=== PATIENT | female | born 1995 | race Caucasian/White ===

== ENCOUNTER 2021-06-08 10:03 | Inpatient (IN) | payer OTHER ==
[2021-06-08] MEDS ORDERED: Ondansetron PF 4 MG/2 ML Vial IVP PRN ×3 (10:25→18:37)
[2021-06-08] MEDS ORDERED: Promethazine HCl 25 MG/ML VIAL IM PRN ×3 (10:25→18:37)
[2021-06-08] MEDS ORDERED: Bicitra 30 ML UDCUP PO PRN (10:25)
[2021-06-08] MEDS ORDERED: Famotidine/PF 20 mg/2ml Vial SLOW IVP PRN (10:25)
[2021-06-08] MEDS ORDERED: hydrALAZINE 20 MG/ML VIAL SLOW IVP PRN ×2 (10:25→18:37)
[2021-06-08] MEDS ORDERED: ceFAZolin 2 GM/Dextrose 50 ML 2 GM in Premix Bag 1 BAG IVPB SCH (10:30)
[2021-06-08 10:50] VITALS: BMI 31.3
[2021-06-08 11:23] LABS: Hemoglobin 10.6 g/dL (12.0-15.5); Mean Corpuscular Hemoglobin 27.2 pg (27.0-33.0); Mean Platelet Volume 11.2 fl (7.4-10.4); Platelet Count 273 10x3/uL (150-450); RBC Distribution Width 13.9 % (11.5-14.5); White Blood Cell (WBC) Count 9.2 10x3/uL (3.5-10.5)
[2021-06-08 11:51] LABS: Hep B Surf Ag Non-Reactive S/CO (NonReactive)
[2021-06-08 11:52] LABS: Syphilis Antibody Nonreactive (Nonreactive); Syphilis Antibody Index 0.09 S/CO (<1.00 Non-Reactive)
[2021-06-08] MEDS ORDERED: PROPOFOL 20 ML ONE ×3 (11:58→17:07)
[2021-06-08] MEDS ORDERED: Fentanyl 250 MCG/5 ML VIAL ONE (11:58)
[2021-06-08] MEDS ORDERED: Oxytocin 10 UNITS/ML VIAL ONE (11:59)
[2021-06-08] MEDS ORDERED: Succinylcholine 200 MG/10 ml SYRINGE FS ONE ×2 (11:59→16:16)
[2021-06-08] MEDS: Lactated Ringer's 1,000 ML IV SCH ×3 (11:59→18:42)
[2021-06-08] MEDS ORDERED: Dexamethasone 4 mg/ml Vial ONE (11:59)
[2021-06-08] MEDS ORDERED: Ondansetron PF 4 MG/2 ML Vial ONE (11:59)
[2021-06-08 12:48] LABS: SARS-CoV-2 NAA Rapid Test Not Detected (NotDetected)
[2021-06-08] MEDS ORDERED: Meperidine HCl/PF 25 MG/ML VIAL SLOW IVP PRN (13:00)
[2021-06-08] MEDS ORDERED: fentaNYL Citrate/PF 1,000 MCG in Sodium Chloride 0.9% 30 ML IV PRN (13:00)
[2021-06-08] MEDS ORDERED: diphenhydrAMINE 50 MG/ML VIAL IM PRN (13:00)
[2021-06-08] MEDS ORDERED: fentaNYL Citrate/PF 2,000 MCG in Sodium Chloride 0.9% 60 ML IV PRN (13:00)
[2021-06-08] MEDS ORDERED: Zolpidem Tartrate 5 MG TAB PO PRN (13:00)
[2021-06-08] MEDS ORDERED: Naloxone HCl 0.4 mg/ml Vial IV PRN (13:00)
[2021-06-08] MEDS ORDERED: Ondansetron HCl/PF 4 MG/2 ML Vial IVP PRN (13:00)
[2021-06-08] MEDS ORDERED: Fentanyl 100 MCG/2 ML VIAL SLOW IVP PRN (13:00)
[2021-06-08] MEDS ORDERED: diphenhydrAMINE 50 MG/ML VIAL IVP PRN (13:00)
[2021-06-08] MEDS ORDERED: diphenhydrAMINE 25 MG CAP PO PRN (13:00)
[2021-06-08] MEDS ORDERED: Ketorolac Tromethamine 30 MG/ML VIAL IVP SCH (13:00)
[2021-06-08] MEDS ORDERED: Communication Order-Pharmacy FS PRN (13:00)
[2021-06-08] MEDS ORDERED: Ketorolac Tromethamine 30 MG/ML VIAL ONE (13:29)
[2021-06-08] MEDS: fentaNYL Citrate/PF 1,000 MCG in Sodium Chloride 0.9% 30 ML IV PRN ×2 (13:46→19:52)
[2021-06-08] MEDS: Misoprostol 200 MCG TAB ONE (14:40)
[2021-06-08] MEDS ORDERED: NS w/ Oxytocin 30 units 500 ML ONE (14:40)
[2021-06-08] MEDS ORDERED: NS w/ Oxytocin 30 units 500 ML IVPB SCH (14:45)
[2021-06-08] MEDS ORDERED: Misoprostol 200 MCG TAB PR SCH (15:00)
[2021-06-08] MEDS ORDERED: Methylergonovine 0.2 MG/ML VIAL ONE (15:14)
[2021-06-08] MEDS ORDERED: Methylergonovine 0.2 MG/ML VIAL IM SCH (15:15)
[2021-06-08] MEDS ORDERED: HYDROmorphone 0.5 MG/0.5 ML SYRINGE SLOW IVP PRN (15:15)
[2021-06-08 15:51] LABS: HBSAg Index 0.13 S/CO (0-0.99)
[2021-06-08] MEDS ORDERED: Fentanyl 100 MCG/2 ML VIAL ONE (16:15)
[2021-06-08] MEDS ORDERED: Lidocaine 1% PF 5 ML VIAL ONE (16:16)
[2021-06-08] MEDS ORDERED: Tranexamic Acid 1,000 MG/10 ML VIAL ONE (16:38)
[2021-06-08] MEDS ORDERED: Carboprost 250 MCG/ML AMP ONE (16:38)
[2021-06-08] MEDS ORDERED: CEFAZOLIN 1 GM VIAL ONE ×3 (16:39→16:46)
[2021-06-08] MEDS ORDERED: ePHEDrine Sulfate 50 MG/10 ML VIAL ONE (16:46)
[2021-06-08] MEDS ORDERED: Misoprostol 200 MCG TAB ONE (16:57)
[2021-06-08] MEDS ORDERED: Bisacodyl 10 MG SUPP PR PRN (18:37)
[2021-06-08] MEDS ORDERED: Acetaminophen 325 MG TAB PO PRN (18:37)
[2021-06-08] MEDS ORDERED: Lanolin Ointment 7 GM TUBE TOP PRN (18:37)
[2021-06-08] MEDS ORDERED: Acetaminophen/Codeine 30-300mg Tablet PO PRN ×2 (18:37)
[2021-06-08] MEDS ORDERED: Boostrix 0.5 ML (Tdap) VIAL IM ONE (18:37)
[2021-06-08] MEDS: Ibuprofen 800 MG TAB PO SCH (18:56)
[2021-06-08] MEDS: Ferrous Sulfate 325 MG TAB PO SCH (22:14)
[2021-06-08] MEDS: Docusate 100 MG CAP PO SCH (22:21)
[2021-06-09] MEDS: Ibuprofen 800 MG TAB PO SCH ×3 (01:47→18:20)
[2021-06-09] MEDS: Lactated Ringer's 1,000 ML IV SCH ×2 (01:51→07:10)
[2021-06-09 05:24] LABS: Hemoglobin 7.7 g/dL (12.0-15.5); Mean Corpuscular HGB CONC 33.3 g/dL (32.0-36.0); Mean Corpuscular Volume 81.1 fl (81.6-98.3); Mean Platelet Volume 10.8 fl (7.4-10.4); Platelet Count 206 10x3/uL (150-450); RBC Distribution Width 13.5 % (11.5-14.5); Red Blood Cell (RBC) Count 2.85 10x6/uL (3.90-5.03)
[2021-06-09] MEDS: Ferrous Sulfate 325 MG TAB PO SCH ×2 (08:16→21:15)
[2021-06-09] MEDS: Enoxaparin Sodium 30 MG/0.3 ML SYRINGE SC SCH (08:16)
[2021-06-09] MEDS: Docusate 100 MG CAP PO SCH ×2 (08:16→21:15)
[2021-06-09] MEDS: Prenatal Vitamin 1 TAB PO SCH (08:16)
[2021-06-09] MEDS ORDERED: traMADol HCl 50 MG TAB PO PRN (10:35)
[2021-06-09] MEDS ORDERED: Morphine 4 MG/ML VIAL SLOW IVP SCH (11:00)
[2021-06-09] MEDS: traMADol HCl 50 MG TAB PO PRN (14:33)
[2021-06-09] MEDS: diphenhydrAMINE 25 MG CAP PO PRN (15:30)
[2021-06-09] MEDS: Simethicone Chewable 80 MG TAB PO PRN (21:15)
[2021-06-10] MEDS: diphenhydrAMINE 25 MG CAP PO PRN (01:35)
[2021-06-10] MEDS: Simethicone Chewable 80 MG TAB PO PRN (01:36)
[2021-06-10] MEDS: Ibuprofen 800 MG TAB PO SCH ×3 (01:37→19:26)
[2021-06-10] MEDS: Lactated Ringer's 1,000 ML IV SCH ×2 (07:32→15:30)
[2021-06-10] MEDS: Prenatal Vitamin 1 TAB PO SCH (08:23)
[2021-06-10] MEDS: Ferrous Sulfate 325 MG TAB PO SCH ×2 (08:23→21:31)
[2021-06-10] MEDS: Docusate 100 MG CAP PO SCH ×2 (08:23→21:31)
[2021-06-10] MEDS: Enoxaparin Sodium 30 MG/0.3 ML SYRINGE SC SCH (08:25)
[2021-06-10] MEDS: traMADol HCl 50 MG TAB PO PRN (13:36)
[2021-06-11] MEDS: Lactated Ringer's 1,000 ML IV SCH ×3 (04:37→17:53)
[2021-06-11] MEDS: Ibuprofen 800 MG TAB PO SCH ×2 (06:17→14:01)
[2021-06-11] MEDS: Ferrous Sulfate 325 MG TAB PO SCH (09:04)
[2021-06-11] MEDS: Docusate 100 MG CAP PO SCH (09:04)
[2021-06-11] MEDS: Prenatal Vitamin 1 TAB PO SCH (09:04)
[2021-06-11] MEDS: Enoxaparin Sodium 30 MG/0.3 ML SYRINGE SC SCH (09:05)
[2021-06-11] MEDS: traMADol HCl 50 MG TAB PO PRN ×2 (09:07→18:05)
[2021-06-11 17:54] VITALS: BP 123/74; TEMP 98.1
== END 2021-06-11 19:20 | disposition home or self-care (01) | DRG 787 ==
LOC: CSHLD 10:03 → CSHPP 18:20
PROVIDERS: ADMIT Student in an Organized Health Care Education/Training Program; ATTEND Student in an Organized Health Care Education/Training Program
PROC: 10D00Z1 Extraction of Products of Conception, Low, Open Approach (ICD-10-PCS; principal; 2021-06-08)
PROC: 10D17Z9 Manual Extraction of Products of Conception, Retained, Via Natural or Artificial Opening (ICD-10-PCS; 2021-06-08)
PROC: 0UC97ZZ Extirpation of Matter from Uterus, Via Natural or Artificial Opening (ICD-10-PCS; 2021-06-08)
PROC: 3E0334Z Introduction of Serum, Toxoid and Vaccine into Peripheral Vein, Percutaneous Approach (ICD-10-PCS; 2021-06-08)
DX: O36.5930 Maternal care for other known or suspected poor fetal growth, third trimester, not applicable or unspecified (principal); G82.20 Paraplegia, unspecified; O99.354 Diseases of the nervous system complicating childbirth; O72.2 Delayed and secondary postpartum hemorrhage; Z20.822 Contact with and (suspected) exposure to COVID-19; O26.893 Other specified pregnancy related conditions, third trimester; M95.5 Acquired deformity of pelvis; O99.892 Other specified diseases and conditions complicating childbirth; Z3A.37 37 weeks gestation of pregnancy; Z37.0 Single live birth; Z88.1 Allergy status to other antibiotic agents; Z88.6 Allergy status to analgesic agent; Z88.7 Allergy status to serum and vaccine; Z91.040 Latex allergy status; Z88.0 Allergy status to penicillin; Z91.041 Radiographic dye allergy status; Z67.41 Type O blood, Rh negative; Z99.3 Dependence on wheelchair
CPT/HCPCS: 36415; 51702; 85027; 85461; 86780; 86850; 86870; 86900; 86901; 87340; 90384; 96372; J0690; J1100; J1170; J1650; J1885; J2210; J2270; J2405; J2550; J2590; J2704; J3010; J3490; J7120; U0002

== ENCOUNTER → 2022-03-29 | Day surgery (SDC) | payer OTHER ==
[~2022-03-29] MED LIST: Acetaminophen 500 MG TAB ONE; Iron Sucrose Complex 500 MG in Sodium Chloride 0.9% 250 ML 250 ML IVPB SCH; diphenhydrAMINE 25 MG CAP ONE
== END ==
LOC: CSHSDC/OP 14:34
PROVIDERS: ATTEND Student in an Organized Health Care Education/Training Program
DX: O99.019 Anemia complicating pregnancy, unspecified trimester (principal); D64.9 Anemia, unspecified
CPT/HCPCS: J1756; J7050

== ENCOUNTER 2022-05-05 04:50 | Inpatient (IN) | payer OTHER ==
[2022-05-04 16:36] LABS: Platelet Count 238 10x3/uL (150-450)
[2022-05-04 16:59] LABS: SARS-CoV-2 NAA Rapid Test Not Detected (NotDetected)
[2022-05-04 17:04] LABS: HBSAg Index 0.16 S/CO (0-0.99); Hep B Surf Ag Non-Reactive S/CO (NonReactive)
[2022-05-04 17:05] LABS: Syphilis Antibody Nonreactive (Nonreactive); Syphilis Antibody Index 0.07 S/CO (<1.00 Non-Reactive)
[2022-05-05 05:29] VITALS: BMI 27.2
[2022-05-05] MEDS ORDERED: Famotidine/PF 20 mg/2ml Vial SLOW IVP PRN (05:58)
[2022-05-05] MEDS ORDERED: Bicitra 30 ML UDCUP PO PRN (05:58)
[2022-05-05] MEDS ORDERED: Clindamycin/D5W 900 MG in Premix Bag 1 BAG IVPB SCH (06:00)
[2022-05-05] MEDS ORDERED: Gentamicin Sulfate 120 MG in Premix Bag 1 BAG IVPB SCH (06:15)
[2022-05-05] MEDS ORDERED: Succinylcholine 200 MG/10 ml SYRINGE FS ONE (07:13)
[2022-05-05] MEDS ORDERED: Oxytocin 10 UNITS/ML VIAL ONE (07:13)
[2022-05-05] MEDS ORDERED: Ondansetron PF 4 MG/2 ML Vial ONE (07:13)
[2022-05-05] MEDS ORDERED: Dexamethasone 4 mg/ml Vial ONE (07:13)
[2022-05-05] MEDS ORDERED: PROPOFOL 20 ML ONE (07:14)
[2022-05-05] MEDS ORDERED: Tranexamic Acid 1,000 MG/10 ML VIAL ONE (07:14)
[2022-05-05] MEDS ORDERED: Fentanyl 100 MCG/2 ML VIAL ONE (07:14)
[2022-05-05] MEDS ORDERED: Misoprostol 200 MCG TAB ONE (07:14)
[2022-05-05] MEDS ORDERED: Fentanyl 100 MCG/2 ML VIAL SLOW IVP PRN (07:22)
[2022-05-05] MEDS ORDERED: Ondansetron HCl/PF 4 MG/2 ML Vial IVP PRN ×2 (07:22)
[2022-05-05] MEDS ORDERED: Promethazine HCl 25 MG/ML VIAL IM PRN ×3 (07:22→15:08)
[2022-05-05] MEDS ORDERED: Meperidine HCl/PF 25 MG/ML VIAL SLOW IVP PRN (07:22)
[2022-05-05] MEDS ORDERED: Ketorolac Tromethamine 30 MG/ML VIAL IVP SCH (07:30)
[2022-05-05] MEDS ORDERED: Glycopyrrolate 0.2 MG/ML 5 ML SYRINGE ONE (08:09)
[2022-05-05] MEDS ORDERED: Meperidine HCl/PF 25 MG/ML VIAL ONE ×3 (08:09→10:40)
[2022-05-05] MEDS ORDERED: Midazolam HCl 2 mg/2 ml Vial ONE (08:38)
[2022-05-05] MEDS ORDERED: Zolpidem Tartrate 5 MG TAB PO PRN (10:30)
[2022-05-05] MEDS ORDERED: Ondansetron PF 4 MG/2 ML Vial IVP PRN ×2 (10:30→15:08)
[2022-05-05] MEDS ORDERED: Naloxone HCl 0.4 mg/ml Vial IV PRN (10:30)
[2022-05-05] MEDS ORDERED: diphenhydrAMINE 50 MG/ML VIAL IM/IV PRN (10:30)
[2022-05-05] MEDS ORDERED: diphenhydrAMINE 25 MG CAP PO PRN ×2 (10:30→15:08)
[2022-05-05] MEDS ORDERED: FENTANYL 500 MCG/10 ML VIAL 1,000 MCG in Sodium Chloride 0.9% 30 ML IV PRN (10:30)
[2022-05-05] MEDS ORDERED: Lanolin Ointment 7 GM TUBE TOP PRN (15:08)
[2022-05-05] MEDS ORDERED: Boostrix 0.5 ML (Tdap) VIAL (>/=7 yrs of age) IM ONE (15:08)
[2022-05-05] MEDS ORDERED: Acetaminophen 325 MG TAB PO PRN (15:08)
[2022-05-05] MEDS ORDERED: Simethicone Chewable 80 MG TAB PO PRN (15:08)
[2022-05-05] MEDS ORDERED: hydrALAZINE 20 MG/ML VIAL SLOW IVP PRN (15:08)
[2022-05-05] MEDS ORDERED: Meperidine HCl/PF 25 MG/ML VIAL IM PRN (15:08)
[2022-05-05] MEDS ORDERED: Bisacodyl 10 MG SUPP PR PRN (15:08)
[2022-05-05] MEDS ORDERED: Docusate 100 MG CAP PO SCH (15:30)
[2022-05-05] MEDS ORDERED: Prenatal Vitamin 1 TAB PO SCH (15:30)
[2022-05-05] MEDS ORDERED: Ferrous Sulfate 325 MG TAB PO SCH (15:30)
[2022-05-05] MEDS: Ketorolac Tromethamine 30 MG/ML VIAL IVP SCH ×2 (17:30→22:38)
[2022-05-06] MEDS: Ketorolac Tromethamine 30 MG/ML VIAL IVP SCH ×3 (03:42→16:41)
[2022-05-06 04:27] LABS: Hemoglobin 7.9 g/dL (12.0-15.5); Mean Corpuscular HGB CONC 30.9 g/dL (32.0-36.0); Mean Corpuscular Hemoglobin 24.2 pg (27.0-33.0); Mean Corpuscular Volume 78.5 fl (81.6-98.3); Platelet Count 235 10x3/uL (150-450); Red Blood Cell (RBC) Count 3.26 10x6/uL (3.90-5.03)
[2022-05-06] MEDS: Ferrous Sulfate 325 MG TAB PO SCH (09:12)
[2022-05-06] MEDS: Prenatal Vitamin 1 TAB PO SCH (09:12)
[2022-05-06] MEDS: Docusate 100 MG CAP PO SCH ×2 (09:13→22:37)
[2022-05-06] MEDS ORDERED: Meperidine HCl/PF 25 MG/ML VIAL IM PRN (16:09)
[2022-05-06] MEDS: traMADol HCl 50 MG TAB PO PRN ×2 (16:37→22:37)
[2022-05-07] MEDS: Ketorolac Tromethamine 30 MG/ML VIAL IVP SCH ×3 (03:01→09:43)
[2022-05-07] MEDS: traMADol HCl 50 MG TAB PO PRN ×2 (03:02→18:32)
[2022-05-07] MEDS: Ferrous Sulfate 325 MG TAB PO SCH ×3 (07:31→22:00)
[2022-05-07] MEDS: Prenatal Vitamin 1 TAB PO SCH (08:23)
[2022-05-07] MEDS: Docusate 100 MG CAP PO SCH ×2 (08:24→22:00)
[2022-05-07] MEDS: Ibuprofen 800 MG TAB PO SCH ×2 (15:56→22:00)
[2022-05-08] MEDS: Ibuprofen 800 MG TAB PO SCH (06:11)
[2022-05-08 08:34] VITALS: BP 112/66; TEMP 98
[2022-05-08] MEDS: Docusate 100 MG CAP PO SCH (10:12)
[2022-05-08] MEDS: Ferrous Sulfate 325 MG TAB PO SCH (10:12)
[2022-05-08] MEDS: Prenatal Vitamin 1 TAB PO SCH (10:12)
== END 2022-05-08 12:35 | disposition home or self-care (01) | DRG 784 ==
LOC: CSHLD 04:50 → CSHPP 15:40
PROVIDERS: ADMIT Student in an Organized Health Care Education/Training Program; ATTEND Student in an Organized Health Care Education/Training Program
PROC: 10D00Z1 Extraction of Products of Conception, Low, Open Approach (ICD-10-PCS; principal; 2022-05-05)
PROC: 0UT70ZZ Resection of Bilateral Fallopian Tubes, Open Approach (ICD-10-PCS; 2022-05-05)
PROC: 3E0334Z Introduction of Serum, Toxoid and Vaccine into Peripheral Vein, Percutaneous Approach (ICD-10-PCS; 2022-05-05)
DX: O34.211 Maternal care for low transverse scar from previous cesarean delivery (principal); G82.20 Paraplegia, unspecified; O99.354 Diseases of the nervous system complicating childbirth; Z20.822 Contact with and (suspected) exposure to COVID-19; Z3A.39 39 weeks gestation of pregnancy; Z37.0 Single live birth; F41.9 Anxiety disorder, unspecified; O99.344 Other mental disorders complicating childbirth; Z99.3 Dependence on wheelchair; Z79.899 Other long term (current) drug therapy; Z88.1 Allergy status to other antibiotic agents; Z88.7 Allergy status to serum and vaccine; Z88.0 Allergy status to penicillin; Z91.013 Allergy to seafood; Z91.041 Radiographic dye allergy status; O26.893 Other specified pregnancy related conditions, third trimester; Z67.41 Type O blood, Rh negative; Z80.3 Family history of malignant neoplasm of breast; O90.81 Anemia of the puerperium; D50.0 Iron deficiency anemia secondary to blood loss (chronic); M41.9 Scoliosis, unspecified; O99.892 Other specified diseases and conditions complicating childbirth
CPT/HCPCS: 36415; 51702; 85014; 85018; 85027; 85049; 85461; 86780; 86850; 86870; 86900; 86901; 86922; 87340; 88302; 90384; 96372; J1100; J1200; J1580; J1885; J2175; J2250; J2405; J2590; J2704; J3010; J3490; S0028; U0002